=== PATIENT | female | born 1985 | race American Indian/Alaskan Native ===

== ENCOUNTER 2016-07-05 19:04 | Emergency (ER) | payer MEDICAID ==
[2016-07-05 21:47] LABS: Hematocrit 41.8 % (30.3-42.9); Hemoglobin 13.8 gm/dl (10.1-14.3); Mean Corpuscular HGB Conc 33 % (30-34); Mean Corpuscular Hemoglobin 27 pg (28-32); Mean Corpuscular Volume 83 fl (79-97); Platelet Count 252 K/mm3 (140-440); Red Blood Count 5.05 M/mm3 (3.65-5.03); Red Cell Distribution Width 13.5 % (13.2-15.2)
[2016-07-05 22:22] LABS: Alanine Aminotransferase 73 units/L (7-56); Albumin 4.2 g/dL (3.9-5); Albumin/Globulin Ratio 1.2 %; Alkaline Phosphatase 67 units/L (35-129); Anion Gap 22 mmol/L; BUN/Creatinine Ratio 18.57; Bilirubin,Total 0.6 mg/dL (0.1-1.2); Blood Urea Nitrogen 13 mg/dL (7-17); Calcium 9.4 mg/dL (8.4-10.2); Carbon Dioxide 22 mmol/L (22-30); Chloride 100.6 mmol/L (98-107); Glucose 95 mg/dL (65-100); Lipase 33 units/L (13-60); Potassium 3.9 mmol/L (3.6-5.0); Sodium 141 mmol/L (137-145); Total Protein 7.6 g/dL (6.3-8.2)
[2016-07-05 22:32] LABS: Basophils % (Manual) 0 % (0.0-1.8); Blastocytes % (Manual) 0 %; RBC Morphology Normal
[2016-07-05 22:33] LABS: Diff Status Complete
[2016-07-05 23:47] LABS: Bilirubin,Urine NEG (Negative); Blood,Urine SM (Negative); Ketones,Urine NEG (Negative); Leukocyte Esterase,Urine NEG (Negative); Mucus,Urine FEW /HPF; Nitrite,Urine NEG (Negative); Protein,Urine <15 mg/dL mg/dL (Negative); Urobilinogen,Urine < 2.0 mg/dL (<2.0); WBC,Urine < 1.0 /HPF (0.0-6.0)
--- NOTE | 2016-07-06 01:42 | Emergency Department Report ---
ED Abdominal Pain HPI - General Chief Complaint: Abdominal Pain Stated Complaint: DIZZINESS Time Seen by Provider: 07/06/16 01:28 Source: patient Mode of arrival: Ambulatory Limitations: No Limitations - History of Present Illness Initial Comments: This is a 31-year-old female who complains of right upper quadrant abdominal pain intermittently for several months. She has been told that she has elevated liver enzymes. She has had an evaluation regarding this and does not have a definitive diagnosis. She states that the pain usually is tolerable but sometimes requires increased pain medication. Patient EKG she was pulling laundry at home this evening when she had sudden onset of increased pain in the right upper quadrant associated with some pain radiating to the back as well as some nausea and dizziness she reports that since coming to the ED her dizziness and nausea resolved. She does indicate she has the chronic pains is still persistent right upper quadrant. She does have a primary physician who she has seen for this in the past there is not a definitive diagnosis at this time. -: month(s) Location: RUQ Radiation: back Migration to: no migration Severity: moderate Severity scale (0 -10): 3 Quality: cramping Improves With: rest Worsens With: nothing Associated Symptoms: nausea - Related Data Previous Rx's Medication Instructions Recorded Last Taken Type Metoprolol [Lopressor TAB] 25 mg PO BID #60 tablet 09/22/14 11/04/14 06:00 Rx Ibuprofen [Motrin 800 MG tab] 800 mg PO Q8H PRN #60 tablet 11/04/14 Unknown Rx oxyCODONE /ACETAMINOPHEN [Percocet 1 tab PO Q6HR PRN #20 tablet 07/06/16 Unknown Rx 5/325 mg] Allergies Allergy/AdvReac Type Severity Reaction Status Date / Time Latex, Natural Rubber Allergy Rash Verified 03/17/15 13:36 pineapple Allergy Hives Verified 07/05/16 20:34 ED Review of Systems ROS: Stated complaint: DIZZINESS Other details as noted in HPI Constitutional: denies: chills, fever Eyes: denies: eye pain, eye discharge, vision change ENT: denies: ear pain, throat pain Respiratory: denies: cough, shortness of breath, wheezing Cardiovascular: denies: chest pain, palpitations Endocrine: no symptoms reported Gastrointestinal: abdominal pain, nausea. denies: diarrhea Genitourinary: denies: urgency, dysuria, discharge Musculoskeletal: denies: back pain, joint swelling, arthralgia Skin: denies: rash, lesions Neurological: vertigo (now resolved). denies: headache, weakness, paresthesias Psychiatric: denies: anxiety, depression Hematological/Lymphatic: denies: easy bleeding, easy bruising ED Past Medical Hx - Past Medical History Previous Medical History?: Yes Hx Hypertension: Yes Hx Heart Attack/AMI: Yes (2006) Hx Headaches / Migraines: Yes (migraines) Additional medical history: Sciatica - Surgical History Past Surgical History?: Yes Additional Surgical History: x1. ABLATION (UTERINE) - Social History Smoking Status: Never Smoker Substance Use Type: None - Medications Home Medications: Home Medications Medication Instructions Recorded Confirmed Last Taken Type Metoprolol [Lopressor TAB] 25 mg PO BID #60 tablet 09/22/14 11/04/14 11/04/14 06 :00 Rx Ibuprofen [Motrin 800 MG tab] 800 mg PO Q8H PRN #60 tablet 11/04/14 Unknown Rx oxyCODONE /ACETAMINOPHEN [Percocet 1 tab PO Q6HR PRN #20 tablet 07/06/16 Unknown Rx 5/325 mg] ED Physical Exam - General Limitations: No Limitations General appearance: alert, in no apparent distress - Head Head exam: Present: atraumatic, normocephalic - Eye Eye exam: Present: normal appearance, PERRL, EOMI. Absent: scleral icterus - ENT ENT exam: Present: normal exam, normal orophraynx, mucous membranes moist - Neck Neck exam: Present: normal inspection, full ROM. Absent: tenderness, lymphadenopathy - Respiratory Respiratory exam: Present: normal lung sounds bilaterally. Absent: respiratory distress - Cardiovascular Cardiovascular Exam: Present: regular rate, normal rhythm. Absent: systolic murmur, diastolic murmur, rubs, gallop - GI/Abdominal GI/Abdominal exam: Present: soft, tenderness (mild in RUQ), normal bowel sounds. Absent: organomegaly - Extremities Exam Extremities exam: Present: normal inspection - Back Exam Back exam: Present: normal inspection, full ROM, tenderness (mild R mid back tenderness) - Neurological Exam Neurological exam: Present: alert, oriented X3 - Psychiatric Psychiatric exam: Present: normal affect, normal mood - Skin Skin exam: Present: warm, dry, intact, normal color. Absent: rash ED Course Vital Signs 07/05/16 07/06/16 20:34 01:20 Temperature 98.2 F Pulse Rate 80 80 Respiratory 20 16 Rate Blood Pressure 161/116 Blood Pressure 175/125 [Left] O2 Sat by Pulse 99 100 Oximetry - Reevaluation(s) Reevaluation #1: 07/06/16 01:51 Labs noted here. There is mild elevation in liver enzymes consistent with prior studies. Rest of labs are unremarkable. Urinalysis is unremarkable ECG was obtained as well demonstrates sinus rhythm without any concerning findings. In regards to the dizziness sensation, I do not suspect any significant pathology. I do not suspect stroke. I do not suspect peripheral vertigo. I believe her dizziness came in his association with her pain. Again it is resolved at this time. Her main complaint at this time is the ongoing right upper quadrant pain. I did encourage her to continue to follow up with her primary physician for continued evaluation of this problem. ED Medical Decision Making - Lab Data Result diagrams: 07/05/16 21:04 07/05/16 21:04 - EKG Data -: EKG Interpreted by Me EKG shows normal: sinus rhythm, axis (normal), intervals (nml), ST-T waves (nml) Rate: normal Critical care attestation.: If time is entered above; I have spent that time in minutes in the direct care of this critically ill patient, excluding procedure time. ED Disposition Clinical Impression: Elevated transaminase level Abdominal pain Qualifiers: Abdominal location: right upper quadrant Qualified Code(s): R10.11 - Right upper quadrant pain Disposition: DISCHARGED TO HOME OR SELFCARE Is pt being admited?: No Does the pt Need Aspirin: No Condition: Stable Instructions: Abdominal Pain (ED) Additional Instructions: Eat a bland diet. Drink plenty of fluids. Rest. Tylenol for pains during the day. Hydrocodone at night if needed. Prescriptions: oxyCODONE /ACETAMINOPHEN [Percocet 5/325 mg] 1 tab PO Q6HR PRN #20 tablet PRN Reason: Pain Time of Disposition: 01:40
[2016-07-06 02:21] VITALS: BP 135/96
== END 2016-07-06 02:17 | disposition home or self-care (01) ==
LOC: ED 19:04
DX: R10.11 Right upper quadrant pain (principal); R74.0 Nonspecific elevation of levels of transaminase and lactic acid dehydrogenase [LDH]; I10 Essential (primary) hypertension; I25.2 Old myocardial infarction; G43.909 Migraine, unspecified, not intractable, without status migrainosus; Z91.040 Latex allergy status; Z91.018 Allergy to other foods
CPT/HCPCS: 36415; 80053; 81001; 81025; 83690; 84484; 85007; 85025; 93005; 93010; 99285

== ENCOUNTER 2017-03-21 15:01 | Emergency (ER) | payer MEDICAID, OTHER ==
[2017-03-21 16:27] LABS: Urine Drugs of Abuse Note Disclamer
[2017-03-21 16:42] LABS: Basophils % (Auto) 0.8 % (0.0-1.8); Eosinophils % (Auto) 2.4 % (0.0-4.3); Hematocrit 43.7 % (30.3-42.9); Hemoglobin 14.3 gm/dl (10.1-14.3); Mean Corpuscular HGB Conc 33 % (30-34); Mean Corpuscular Hemoglobin 28 pg (28-32); Mean Corpuscular Volume 85 fl (79-97); Platelet Count 238 K/mm3 (140-440); Red Blood Count 5.15 M/mm3 (3.65-5.03); Red Cell Distribution Width 13.5 % (13.2-15.2); White Blood Count 5.8 K/mm3 (4.5-11.0)
[2017-03-21 16:55] LABS: Bilirubin,Urine NEG (Negative); Blood,Urine NEG (Negative); Ketones,Urine NEG (Negative); Leukocyte Esterase,Urine TR (Negative); Mucus,Urine FEW /HPF; Nitrite,Urine NEG (Negative); Protein,Urine <15 mg/dL mg/dL (Negative); Urobilinogen,Urine < 2.0 mg/dL (<2.0)
--- NOTE | 2017-03-21 17:33 | Emergency Department Report ---
ED Syncope HPI - General Chief Complaint: Neuro Symptoms/Deficit Stated Complaint: AMS/SYNCOPE Time Seen by Provider: 03/21/17 17:20 Source: patient, EMS (ems notes not available at time of chart dictation), RN notes reviewed - History of Present Illness Initial Comments: This is a 32-year-old female, the patient is previously unknown to this provider , she currently does not have a primary care doctor and she endorses a history of hypertension and diabetes, as well as obesity. Patient reports that she was at a skilled nursing today, "for probation", when she reports an episode of unprovoked syncope. Patient reports a headache that started yesterday, the headache is throbbing and frontal, it is not the worse headache of her life, it is not sudden or thunderclap in nature, and it did not reach maximal intensity within an hour. The patient reports that she gets a lot of headaches, she has multiple headaches in a month. The headache that she experienced yesterday as qualitatively similar to prior headaches. There is no chest pain shortness of breath or abdominal pain. Patient reports that her left shoulder hurts from where she fell, as well as her bilateral hips , as well as her right flank. It is no leg pain, there is no leg swelling, no recent trips greater than 4 hours, and no recent hospital admissions. The patient has no recollection of the event, although she does think that she had an episode of syncope last year. Timing/Prior Episodes: single episode today Precipitating Factors: Positive: none Loss of Consciousness: brief (seconds) Current Symptoms: back to normal - Related Data Allergies/Adverse Reactions: Allergies Latex, Natural Rubber Allergy (Verified 03/17/15 13:36) Rash pineapple Allergy (Verified 07/05/16 20:34) Hives Home Medications: Ambulatory Orders Metoprolol [Lopressor TAB] 25 mg PO BID #60 tablet 09/22/14 Ibuprofen [Motrin 800 MG tab] 800 mg PO Q8H PRN #60 tablet 11/04/14 oxyCODONE /ACETAMINOPHEN [Percocet 5/325 mg] 1 tab PO Q6HR PRN #20 tablet Acetaminophen [Tylenol Arthritis] 650 mg PO Q6HR PRN #30 tablet.er 03/21/17 Ibuprofen [Motrin] 600 mg PO Q8H PRN #30 tablet 03/21/17 ED Review of Systems ROS: Stated complaint: AMS/SYNCOPE Other details as noted in HPI Constitutional: denies: fever Eyes: denies: vision change ENT: denies: epistaxis Respiratory: denies: cough Cardiovascular: syncope. denies: chest pain Gastrointestinal: abdominal pain Genitourinary: denies: dysuria Musculoskeletal: back pain Neurological: headache, weakness Psychiatric: anxiety ED Past Medical Hx - Past Medical History Hx Hypertension: Yes Hx Heart Attack/AMI: Yes (2006) Hx Headaches / Migraines: Yes (migraines) Additional medical history: Sciatica - Surgical History Additional Surgical History: x1. ABLATION (UTERINE) - Social History Smoking Status: Unknown if ever smoked - Medications Home Medications: Home Medications Medication Instructions Recorded Confirmed Last Taken Type Metoprolol [Lopressor TAB] 25 mg PO BID #60 tablet 09/22/14 11/04/14 11/04/14 06 :00 Rx Ibuprofen [Motrin 800 MG tab] 800 mg PO Q8H PRN #60 tablet 11/04/14 Unknown Rx oxyCODONE /ACETAMINOPHEN [Percocet 1 tab PO Q6HR PRN #20 tablet 07/06/16 Unknown Rx 5/325 mg] Acetaminophen [Tylenol Arthritis] 650 mg PO Q6HR PRN #30 tablet.er 03/21/17 Unknown Rx Ibuprofen [Motrin] 600 mg PO Q8H PRN #30 tablet 03/21/17 Unknown Rx ED Physical Exam - General Limitations: No Limitations General appearance: alert, in no apparent distress, anxious, obese - Head Head exam: Present: atraumatic, normocephalic - Eye Eye exam: Present: normal appearance, PERRL, EOMI, other (visual acuity intact to finger counting, color perception, reading at a close distance). Absent: nystagmus - ENT ENT exam: Present: normal exam, normal orophraynx, mucous membranes moist, normal external ear exam - Neck Neck exam: Present: normal inspection, full ROM. Absent: tenderness, meningismus - Respiratory Respiratory exam: Present: normal lung sounds bilaterally. Absent: respiratory distress, wheezes, rales, rhonchi, stridor, chest wall tenderness, accessory muscle use, decreased breath sounds - Cardiovascular Cardiovascular Exam: Present: regular rate, normal rhythm, normal heart sounds. Absent: bradycardia, tachycardia, irregular rhythm, systolic murmur, diastolic murmur, rubs, gallop - GI/Abdominal GI/Abdominal exam: Present: soft, normal bowel sounds. Absent: distended, tenderness, guarding, rebound, rigid, pulsatile mass - Extremities Exam Extremities exam: Present: normal inspection, full ROM, normal capillary refill , other (the left lateral shoulder is tender.). Absent: pedal edema, joint swelling, calf tenderness - Back Exam Back exam: Present: normal inspection, full ROM, CVA tenderness (L), paraspinal tenderness - Neurological Exam Neurological exam: Present: alert, oriented X3, normal gait, other (Extraocular movements intact. Tongue midline. No facial droop. Facial sensation intact to light touch in the V1, V2, V3 distribution bilaterally. 5 and 5 strength in 4 extremities.. Sensation is intact to light touch in 4 extremities.). Absent : motor sensory deficit - Psychiatric Psychiatric exam: Present: normal affect, normal mood - Skin Skin exam: Present: warm, dry, intact, normal color. Absent: rash ED Course Vital Signs 03/21/17 03/21/17 03/21/17 15:37 15:43 15:51 Temperature 98.5 F Pulse Rate 96 H Respiratory 20 18 Rate Blood Pressure 150/100 137/84 Blood Pressure [Left] O2 Sat by Pulse 98 98 Oximetry 03/21/17 03/21/17 03/21/17 15:57 16:00 16:20 Temperature 98.2 F Pulse Rate 86 91 H Respiratory 18 19 Rate Blood Pressure 137/84 136/93 Blood Pressure 137/84 [Left] O2 Sat by Pulse 99 97 99 Oximetry 03/21/17 03/21/17 19:30 20:46 Temperature 98.6 F Pulse Rate 82 85 Respiratory 18 20 Rate Blood Pressure Blood Pressure 146/96 148/103 [Left] O2 Sat by Pulse 100 100 Oximetry ED Medical Decision Making - Lab Data Result diagrams: 03/21/17 16:18 03/21/17 16:18 Vital Signs 03/21/17 03/21/17 03/21/17 15:37 15:43 15:51 Temperature 98.5 F Pulse Rate 96 H Respiratory 20 18 Rate Blood Pressure 150/100 137/84 Blood Pressure [Left] O2 Sat by Pulse 98 98 Oximetry 03/21/17 03/21/17 03/21/17 15:57 16:00 16:20 Temperature 98.2 F Pulse Rate 86 91 H Respiratory 18 19 Rate Blood Pressure 137/84 136/93 Blood Pressure 137/84 [Left] O2 Sat by Pulse 99 97 99 Oximetry 03/21/17 19:30 Temperature 98.6 F Pulse Rate 82 Respiratory 18 Rate Blood Pressure Blood Pressure 146/96 [Left] O2 Sat by Pulse 100 Oximetry Labs 03/21/17 03/21/17 03/21/17 16:13 16:18 16:18 WBC 5.8 RBC 5.15 H Hgb 14.3 Hct 43.7 H MCV 85 MCH 28 MCHC 33 RDW 13.5 Plt Count 238 Lymph % (Auto) 52.5 H [place] % (Auto) 7.0 Eos % (Auto) 2.4 Baso % (Auto) 0.8 Lymph # 3.0 [place] # 0.4 Eos # 0.1 Baso # 0.0 Seg Neutrophils % 37.3 L Seg Neutrophils # 2.2 PT INR APTT D-Dimer Sodium 141 Potassium 4.4 Chloride 100.2 Carbon Dioxide 21 L Anion Gap 24 BUN 11 Creatinine 0.5 L Estimated GFR > 60 BUN/Creatinine Ratio 22 Glucose 87 POC Glucose 84 Lactic Acid Calcium 9.4 Magnesium 1.70 Total Bilirubin 0.90 AST 147 H ALT 256 H Alkaline Phosphatase 65 Total Creatine Kinase Troponin T Total Protein 7.0 Albumin 4.1 Albumin/Globulin Ratio 1.4 TSH HCG, Qual Urine Color Urine Turbidity Urine pH Ur Specific [place] Urine Protein Urine Glucose (UA) Urine Ketones Urine Blood Urine Nitrite Urine Bilirubin Urine Urobilinogen Ur Leukocyte Esterase Urine WBC (Auto) Urine RBC (Auto) U Epithel Cells (Auto) Urine Mucus Salicylates Urine Opiates Screen Urine Methadone Screen Acetaminophen Ur Barbiturates Screen Ur Phencyclidine Scrn Ur Amphetamines Screen U Benzodiazepines Scrn Urine Cocaine Screen U Marijuana (THC) Screen Drugs of Abuse Note Plasma/Serum Alcohol 03/21/17 03/21/17 03/21/17 16:18 16:18 16:18 WBC RBC Hgb Hct MCV MCH MCHC RDW Plt Count Lymph % (Auto) [place] % (Auto) Eos % (Auto) Baso % (Auto) Lymph # [place] # Eos # Baso # Seg Neutrophils % Seg Neutrophils # PT INR APTT D-Dimer Sodium Potassium Chloride Carbon Dioxide Anion Gap BUN Creatinine Estimated GFR BUN/Creatinine Ratio Glucose POC Glucose Lactic Acid 1.30 Calcium Magnesium Total Bilirubin AST ALT Alkaline Phosphatase Total Creatine Kinase Troponin T Total Protein Albumin Albumin/Globulin Ratio TSH 0.273 HCG, Qual Urine Color Urine Turbidity Urine pH Ur Specific [place] Urine Protein Urine Glucose (UA) Urine Ketones Urine Blood Urine Nitrite Urine Bilirubin Urine Urobilinogen Ur Leukocyte Esterase Urine WBC (Auto) Urine RBC (Auto) U Epithel Cells (Auto) Urine Mucus Salicylates < 0.3 L Urine Opiates Screen Urine Methadone Screen Acetaminophen Ur Barbiturates Screen Ur Phencyclidine Scrn Ur Amphetamines Screen U Benzodiazepines Scrn Urine Cocaine Screen U Marijuana (THC) Screen Drugs of Abuse Note Plasma/Serum Alcohol 03/21/17 03/21/17 03/21/17 16:18 16:18 16:18 WBC RBC Hgb Hct MCV MCH MCHC RDW Plt Count Lymph % (Auto) [place] % (Auto) Eos % (Auto) Baso % (Auto) Lymph # [place] # Eos # Baso # Seg Neutrophils % Seg Neutrophils # PT INR APTT D-Dimer Sodium Potassium Chloride Carbon Dioxide Anion Gap BUN Creatinine Estimated GFR BUN/Creatinine Ratio Glucose POC Glucose Lactic Acid Calcium Magnesium Total Bilirubin AST ALT Alkaline Phosphatase Total Creatine Kinase Troponin T Total Protein Albumin Albumin/Globulin Ratio TSH HCG, Qual Negative Urine Color Urine Turbidity Urine pH Ur Specific [place] Urine Protein Urine Glucose (UA) Urine Ketones Urine Blood Urine Nitrite Urine Bilirubin Urine Urobilinogen Ur Leukocyte Esterase Urine WBC (Auto) Urine RBC (Auto) U Epithel Cells (Auto) Urine Mucus Salicylates Urine Opiates Screen Urine Methadone Screen Acetaminophen < 15.0 Ur Barbiturates Screen Ur Phencyclidine Scrn Ur Amphetamines Screen U Benzodiazepines Scrn Urine Cocaine Screen U Marijuana (THC) Screen Drugs of Abuse Note Plasma/Serum Alcohol < 0.01 03/21/17 03/21/17 03/21/17 16:18 16:18 16:23 WBC RBC Hgb Hct MCV MCH MCHC RDW Plt Count Lymph % (Auto) [place] % (Auto) Eos % (Auto) Baso % (Auto) Lymph # [place] # Eos # Baso # Seg Neutrophils % Seg Neutrophils # PT INR APTT D-Dimer Sodium Potassium Chloride Carbon Dioxide Anion Gap BUN Creatinine Estimated GFR BUN/Creatinine Ratio Glucose POC Glucose Lactic Acid Calcium Magnesium Total Bilirubin AST ALT Alkaline Phosphatase Total Creatine Kinase 197 H Troponin T < 0.010 Total Protein Albumin Albumin/Globulin Ratio TSH HCG, Qual Urine Color Yellow Urine Turbidity Clear Urine pH 5.0 Ur Specific [place] 1.024 Urine Protein <15 mg/dl Urine Glucose (UA) Neg Urine Ketones Neg Urine Blood Neg Urine Nitrite Neg Urine Bilirubin Neg Urine Urobilinogen < 2.0 Ur Leukocyte Esterase Tr Urine WBC (Auto) 2.0 Urine RBC (Auto) 4.0 U Epithel Cells (Auto) 3.0 Urine Mucus Few Salicylates Urine Opiates Screen Urine Methadone Screen Acetaminophen Ur Barbiturates Screen Ur Phencyclidine Scrn Ur Amphetamines Screen U Benzodiazepines Scrn Urine Cocaine Screen U Marijuana (THC) Screen Drugs of Abuse Note Plasma/Serum Alcohol 03/21/17 03/21/17 03/21/17 16:23 17:45 18:50 WBC RBC Hgb Hct MCV MCH MCHC RDW Plt Count Lymph % (Auto) [place] % (Auto) Eos % (Auto) Baso % (Auto) Lymph # [place] # Eos # Baso # Seg Neutrophils % Seg Neutrophils # PT TNR INR TNR APTT TNR D-Dimer TNR Sodium Potassium Chloride Carbon Dioxide Anion Gap BUN Creatinine Estimated GFR BUN/Creatinine Ratio Glucose POC Glucose Lactic Acid Calcium Magnesium Total Bilirubin AST ALT Alkaline Phosphatase Total Creatine Kinase Troponin T < 0.010 Total Protein Albumin Albumin/Globulin Ratio TSH HCG, Qual Urine Color Urine Turbidity Urine pH Ur Specific [place] Urine Protein Urine Glucose (UA) Urine Ketones Urine Blood Urine Nitrite Urine Bilirubin Urine Urobilinogen Ur Leukocyte Esterase Urine WBC (Auto) Urine RBC (Auto) U Epithel Cells (Auto) Urine Mucus Salicylates Urine Opiates Screen Presumptive negative Urine Methadone Screen Presumptive negative Acetaminophen Ur Barbiturates Screen Presumptive negative Ur Phencyclidine Scrn Presumptive negative Ur Amphetamines Screen Presumptive negative U Benzodiazepines Scrn Presumptive negative Urine Cocaine Screen Presumptive negative U Marijuana (THC) Screen Presumptive negative Drugs of Abuse Note Disclamer Plasma/Serum Alcohol 03/21/17 18:50 WBC RBC Hgb Hct MCV MCH MCHC RDW Plt Count Lymph % (Auto) [place] % (Auto) Eos % (Auto) Baso % (Auto) Lymph # [place] # Eos # Baso # Seg Neutrophils % Seg Neutrophils # PT 13.3 INR 0.96 APTT 31.6 D-Dimer 152.86 Sodium Potassium Chloride Carbon Dioxide Anion Gap BUN Creatinine Estimated GFR BUN/Creatinine Ratio Glucose POC Glucose Lactic Acid Calcium Magnesium Total Bilirubin AST ALT Alkaline Phosphatase Total Creatine Kinase Troponin T Total Protein Albumin Albumin/Globulin Ratio TSH HCG, Qual Urine Color Urine Turbidity Urine pH Ur Specific [place] Urine Protein Urine Glucose (UA) Urine Ketones Urine Blood Urine Nitrite Urine Bilirubin Urine Urobilinogen Ur Leukocyte Esterase Urine WBC (Auto) Urine RBC (Auto) U Epithel Cells (Auto) Urine Mucus Salicylates Urine Opiates Screen Urine Methadone Screen Acetaminophen Ur Barbiturates Screen Ur Phencyclidine Scrn Ur Amphetamines Screen U Benzodiazepines Scrn Urine Cocaine Screen U Marijuana (THC) Screen Drugs of Abuse Note Plasma/Serum Alcohol - EKG Data -: EKG Interpreted by Me EKG shows normal: sinus rhythm Rate: normal - EKG Data When compared to previous EKG there are: no significant change Interpretation: unchanged when compared t 03/21/17 20:16 EKG #1 demonstrates normal sinus, 77 bpm, normal intervals, normal axis, not morphologically consistent with STEMI, appears unchanged when compared to prior from 07/05/2016. Repeat EKG is unremarkable and unchanged. - Radiology Data Radiology results: report reviewed, image reviewed interpreted by me: X-ray the chest is negative. X-ray left shoulder is negative. Noncontrast CT scan of the brain is negative, noncontrast CT scan of abdomen and pelvis negative, appendix normal, sacroiliitis is suggested - Medical Decision Making Differential diagnosis: Concussion, intracranial injury, structural cardiac disease, pulmonary embolus, acute coronary syndrome, vagal event, pseudoseizure Assessment and plan: 32-year-old female with single episode of syncope today, reports nonspecific headache that started yesterday, headache by history is not consistent with ischemic stroke, hemorrhagic stroke, or subarachnoid hemorrhage. Patient alert and oriented 3, clinically sober, GCS of 15, NIH score of 0, no cerebellar signs, and walks with a steady gait. No pulmonary embolus or DVT risk factors, low risk by well's criteria, low risk by TASIA score , low risk by heart score, perc negative. Patient observed in the ER for over 5 hours, no convulsive events, no syncopal events. EKG unremarkable and unchanged 2, d-dimer negative, no severe findings noted on objective studies. Patient is suitable to follow-up with an outpatient primary care doctor or squad sergeant, I discussed the patient's history, physical, EKG and exam findings with the squad sergeant on-call, Dr. Sonali Ng, who agreed that patient was suitable to follow-up in outpatient primary care doctor and indicated that the patient could follow-up in the cardiology office if she felt so inclined. I did strongly advise the patient not drive a car or operate motor vehicles for the next 6 months, until cleared by either primary care or cardiology. Patient will be discharged at this time, return cautions reviewed. Critical care attestation.: If time is entered above; I have spent that time in minutes in the direct care of this critically ill patient, excluding procedure time. ED Disposition Clinical Impression: History of syncope Disposition: [id number]-01 TO HOME OR SELFCARE Is pt being admited?: No Does the pt Need Aspirin: No Condition: Stable Instructions: Syncope (ED) Additional Instructions: As we discussed, pain typically will get worse before gets better; CT scan of the abdomen and pelvis demonstrated inflammation of the tailbone/sacroiliac joint. Take pain medication as directed. I recommended not driving a car or operating motor vehicles for the next 6 months, unless cleared by either a primary care doctor, or a squad sergeant. Dr. Dexter is a local primary care doctor; Dr. Ng is a local video conference specialist. [facility], and [facility] are local cardiology practices. Follow-up with the primary care doctor or squad sergeant within the next 7 days. Return to the ER right away with new pain, worsened pain, migration of pain, fevers, chills, lethargy, irritability, projectile vomiting, change in mental status, inability to tolerate liquid feeds, confusion, loss of consciousness. Prescriptions: Acetaminophen [Tylenol Arthritis] 650 mg PO Q6HR PRN #30 tablet.er PRN Reason: Pain Ibuprofen [Motrin] 600 mg PO Q8H PRN #30 tablet PRN Reason: Pain Referrals: PRIMARY MD CADENCE [Primary Care Provider] - 3-5 Days MODESTA DEXTER MD [Staff Physician] - 3-5 Days NUSRAT NG MD [Staff Physician] - 3-5 Days [facility] [Provider Group] - 3-5 Days [facility] [Provider Group] - 3-5 Days Forms: Work/School Release Form(ED)
[2017-03-21 18:14] LABS: Alanine Aminotransferase 256 units/L (7-56); Albumin 4.1 g/dL (3.9-5); Albumin/Globulin Ratio 1.4 %; Alkaline Phosphatase 65 units/L (35-129); Anion Gap 24 mmol/L; BUN/Creatinine Ratio 22; Blood Urea Nitrogen 11 mg/dL (7-17); Calcium 9.4 mg/dL (8.4-10.2); Carbon Dioxide 21 mmol/L (22-30); Chloride 100.2 mmol/L (98-107); Glucose 87 mg/dL (65-100); Potassium 4.4 mmol/L (3.6-5.0); Sodium 141 mmol/L (137-145)
[2017-03-21 18:40] LABS: INR TNR (0.87-1.13)
[2017-03-21 18:42] LABS: Partial Thromboplastin Time TNR Sec. (24.2-36.6)
--- NOTE | 2017-03-21 18:52 | Cat Scan Report ---
FINAL REPORT PROCEDURE: CT HEAD/BRAIN WO CON TECHNIQUE: Computerized tomography of the head was performed without contrast material. HISTORY: syncope amnesia COMPARISON: No prior studies are available for comparison. FINDINGS: No CT evidence of intracranial mass, hemorrhage, acute territorial infarction, or hydrocephalus. The intracranial arteries are symmetric in density. Calvarium is intact. Visualized paranasal sinuses and mastoids are aerated. There is focal calcification in the right parietal scalp. IMPRESSION: No CT evidence of acute intracranial abnormality
[2017-03-21 19:19] LABS: INR 0.96 (0.87-1.13)
[2017-03-21 19:20] LABS: Partial Thromboplastin Time 31.6 Sec. (24.2-36.6)
--- NOTE | 2017-03-21 19:26 | Cat Scan Report ---
FINAL REPORT PROCEDURE: CT ABDOMEN PELVIS WO CON TECHNIQUE: Computerized axial tomography of the abdomen and pelvis was performed without intravenous contrast. This study is performed without intravascular contrast material and its sensitivity for abdominal and pelvic pathology, including neoplasms, inflammation, abscess, free fluid, thrombosis, arterial dissection and infarction, is reduced compared with a contrast enhanced study. HISTORY: right flank pain COMPARISON: No prior studies are available for comparison. FINDINGS: Visualized lower thorax: No significant abnormality. Liver: There is low attenuation of the liver, compatible with fatty infiltration. Spleen: Normal size and attenuation. Gallbladder and biliary system: Gallbladder is present. Pancreas: Normal. Adrenals: Normal. Kidneys: 7 millimeter nonobstructive calculus in the right kidney midpole. No hydronephrosis. No ureteral calculi are identified. No left-sided urolithiasis. GI tract: Appendix is visualized and does not appear inflamed. No bowel obstruction or inflammation is seen. Lymph nodes and mesentery: Normal. Vasculature: Normal. Bladder: Normal. Reproductive organs: Bilateral tubal ligation clips are present. Peritoneum: No free fluid. Musculoskeletal structures: There is sclerosis abutting bilateral sacroiliac joints, suggesting sacroiliitis. Other: None. IMPRESSION: Fatty infiltration of the liver. Nonobstructive right renal calculus. No hydronephrosis or ureteral calculi. No inflammatory process. Sclerosis adjacent to bilateral sacroiliac joints can be seen with sacroiliitis.
[2017-03-21] MEDS ORDERED: TORADOL IV ONE (20:23)
[2017-03-21 20:46] VITALS: BP 148/103
--- NOTE | 2017-03-22 09:06 | XRay Report ---
AP CHEST: HISTORY: Syncope, shoulder pain AP view of the chest demonstrates a normal mediastinal and cardiac contour with clear lungs and normal bony and soft tissue structures. IMPRESSION: Unremarkable AP chest.
--- NOTE | 2017-03-22 09:06 | XRay Report ---
LEFT SHOULDER: History: Left shoulder pain. Routine views demonstrate normal bony and soft tissue structures with normal joint alignment of the shoulder. IMPRESSION: Unremarkable left shoulder.
== END 2017-03-21 20:47 | disposition home or self-care (01) ==
LOC: ED 15:01
DX: R55 Syncope and collapse (principal); I10 Essential (primary) hypertension; I25.2 Old myocardial infarction; G43.909 Migraine, unspecified, not intractable, without status migrainosus; Z91.040 Latex allergy status; Z91.018 Allergy to other foods
CPT/HCPCS: 36415; 70450; 71010; 73030; 74176; 80053; 80307; 81001; 82140; 82550; 82962; 83735; 84443; 84484; 84703; 85025; 85379; 85610; 85730; 93005; 93010; 96374; 99285; G0480; J1885; 80320